=== PATIENT | male | born 1945 | race Caucasian/White ===

== ENCOUNTER 2020-03-07 14:39 | Emergency (ER) | payer OTHER ==
[2020-03-07 16:00] LABS: INR-International Normal Ratio 0.9; PTT 26.2 sec (22.9-36.1); Prothrombin Time 12.8 sec (12.0-14.7)
[2020-03-07 16:16] LABS: Carbon Dioxide 25 mmol/L (23-31); Chloride 105 mmol/L (98-107); Potassium 4.5 mmol/L (3.5-5.1); Sodium 141 mmol/L (136-145)
[2020-03-07 16:17] LABS: BUN (Urea Nitrogen) 23 mg/dL (8.4-25.7); Bilirubin, Total 0.5 mg/dL (0.2-1.2); Calc. Creatinine Clearance 0 mL/min (70-130); Calcium 9.6 mg/dL (7.8-10.44); Globulin 2.8 g/dL (2.4-3.5); Glucose 109 mg/dL (83-110); Protein, Total 6.8 g/dL (5.8-8.1)
[2020-03-07 16:18] LABS: ALT (SGPT) 24 U/L (8-55); AST (SGOT) 21 U/L (5-34); Alkaline Phosphatase 92 U/L (40-110); Anion Gap 16 mmol/L (10-20)
--- NOTE | 2020-03-07 16:19 | RAD ---
XR Chest 1 View Portable HISTORY: Injury, chest pain COMPARISON: 08/21/2013 FINDINGS: The heart size is normal. The lungs are well expanded without focal areas of consolidation, pneumothorax or pleural effusions. IMPRESSION: No radiographic evidence of acute cardiopulmonary process.
[2020-03-07 16:20] LABS: #Eosinphils 0.1 thou/uL (0.0-0.7); #Lymphocytes 0.8 thou/uL (1.20-3.40); #Monocytes 0.5 thou/uL (0.11-0.59); %Basophils 0.6 % (0.0-1.0); %Eosinophils 1.7 % (0.0-10.0); %Lymphocytes 10.8 % (21.0-51.0); %Monocytes 6.3 % (0.0-10.0); %Neutrophils 80.6 % (42.0-75.0); Hemoglobin 12.6 g/dL (14.0-18.0); Mean Corpuscular HGB CONC 32.7 g/dL (32.0-36.0); Mean Corpuscular Hemoglobin 31.1 pg (27.0-31.0); Mean Corpuscular Volume 95.2 fL (78.0-98.0); Mean Platelet Volume 8.1 fL (7.4-10.4); Platelet Count 117 thou/uL (130-400); Red Blood Cell (RBC) Count 4.05 mill/uL (4.70-6.10); White Blood Cell (WBC) Count 7.4 thou/uL (4.8-10.8)
[2020-03-07 16:21] LABS: Platelet Morphology Comment Appears Decreased
--- NOTE | 2020-03-07 16:39 | RAD ---
RIGHT HIP TWO VIEWS: 03/07/20 HISTORY: Injury, right hip pain. 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 There is a minimally displaced fracture involving the proximal right femur involving the subtrochanteric region. POS: OFF
[2020-03-07] MEDS ORDERED: Ondansetron PF 4 MG/2 ML Vial ONE (16:45)
[2020-03-07] MEDS ORDERED: Morphine 4 MG/ML VIAL ONE ×2 (16:45→19:44)
== END 2020-03-07 19:50 | disposition short-term general hospital (02) ==
LOC: MADERS 14:39
DX: S72.144A Nondisplaced intertrochanteric fracture of right femur, initial encounter for closed fracture (principal); K21.9 Gastro-esophageal reflux disease without esophagitis; E78.5 Hyperlipidemia, unspecified; I10 Essential (primary) hypertension; Z79.899 Other long term (current) drug therapy; W18.30XA Fall on same level, unspecified, initial encounter
CPT/HCPCS: 27238; 71045; 80053; 85025; 85610; 85730; 93005; 96374; 96375; 96376; J2270; J2405